=== PATIENT | male | born 1955 | race Caucasian/White ===

== ENCOUNTER → 2019-02-06 | Outpatient (CLI) | payer OTHER ==
--- NOTE | 2019-02-06 11:48 | EXE ---
[facility] [place] [address] STRESS ECHOCARDIOGRAM Name: SARA MONTOYA Room #: REG CL [facility]#: [id number] Admission: 02/06/19 Attend Phys: Renaldo Brennan MD Discharge: Date of : 55 Report #: [id number] THIS REPORT FOR: //name// APPROVED REPORT Study performed: 02/06/2019 10:51:43 Exam: Stress Echocardiogram Indication: Bradycardia Patient Location: Out-Patient Stress Nurse: Livier TALLEY Room #: Echo lab 2 Status: routine Ht: 5 ft 5 in HR: 46 bpm BP: 150/82 mmHg Rhythm: Bradycardia Medical History Allergies: No known drug allergies Cardiac Risk Factors: HTN, Hyperlipidemia Exercise History: Physically active Procedure The patient underwent an Exercise Stress Test using the Cosme Protocol. Blood pressure, heart rate, and EKG were monitored. An Echocardiogram was performed by control technician in four stages in quad fashion. At peak stress, four selected images were obtained and placed side by side with resting images for comparison. Stress Test Details Stress Test: Exercise stress testing was performed using a Cosme protocol. HR Resting HR: 46 bpm Max Heart Rate (APMHR): 157 bpm Max HR Achieved: 1513 bpm Target HR (85% APMHR): 133 bpm % of APMHR: 963 Recovery HR: 77 bpm BP Resting BP: 150/82 mmHg Max BP: 162/84 mmHg Recovery BP: 160/72 mmHg BP response to stress: Normal blood pressure response to stress. [facility] [address] [place] [address] STRESS ECHOCARDIOGRAM Name: SARA MONTOYA Room #: REG [facility]#: [id number] Admission: 02/06/19 Attend Phys: Renaldo Brennan MD Discharge: Date of : 55 Report #: [id number] ECG Resting ECG: Sinus Rhythm Stress ECG: Sinus Rhythm, nonspecific ST-T abnormalities ST Change: Non-ischemic Clinical Reason for Termination: Maximal effort Exercise duration: 73 min sec Highest Stage Achieved: Stage 3: 3.4 mph at 14% grade. Exercise capacity: 10.1 METs Overall Exercise Capacity for Age: Good Pre-Stress Echo The resting Echocardiogram showed normal left ventricular contractility with an estimated Ejection Fraction of about >55%. The resting echocardiogram demonstrated normal wall motion in all wall segments. Normal wall motion in all segments on baseline images. Post-Stress Echo The stress Echocardiogram showed normal left ventricular contractility with an estimated Ejection Fraction of about >70%. Compared to rest, there were no stress-induced wall motion abnormalities. Normal augmentation of wall motion in all segments on post stress images. Clinical No clinical or ECG evidence for ischemia. Conclusion Clinical Response: Non-ischemic Exercise Capacity: Average Stress ECG Response: Non-ischemic Stress Echo Images: Non-ischemic The left ventricle is normal in size and wall thickness in both the rest and stress images. No prior study available for comparison. Other Information Study Quality: Good <Conclusion> [facility] [address] [place] [address] STRESS ECHOCARDIOGRAM Name: DON MONTOYAOPOLDO Room #: REG [facility]#: [id number] Admission: 02/06/19 Attend Phys: Renaldo Brennan MD Discharge: Date of : 55 Report #: [id number] The left ventricle is normal in size and wall thickness in both the rest and stress images. <ELECTRONICALLY SIGNED> By: Renaldo Brennan MD 02/06/19 1147 1147 1147 Renaldo Brennan MD /INF
--- NOTE | 2019-02-06 11:50 | 2DMMODE ---
[facility] [place] [address] 2 D/M-MODE ECHOCARDIOGRAM Name: SARA MONTOYA Room #: REG [facility]#: [id number] Admission: 02/06/19 Attend Phys: Renaldo Brennan MD Discharge: Date of : 55 Report #: [id number] THIS REPORT FOR: //name// APPROVED REPORT Study performed: 02/06/2019 10:07:21 EXAM: Comprehensive 2D, Doppler, and color-flow Echocardiogram Patient Location: Out-Patient Status: routine BSA: 1.82 HR: 49 bpm BP: 150/82 mmHg Rhythm: Bradycardia Other Information Study Quality: Good Indications Bradycardia 2D Dimensions RVDd: 39.23 mm IVSd: 10.53 (7-11mm) LVOT Diam: 18.81 (18-24mm) LVDd: 49.27 mm PWd: 9.23 (7-11mm) Ascending Ao: 33.69 (22-36mm) LVDs: 34.62 (25-40mm) Aortic Root: 34.01 mm Volumes Left Atrial Volume (Systole) Single Plane 4CH: 63.94 mL Single Plane 2CH: 80.21 mL LA ESV Index: 42.00 mL/m2 Aortic Valve AoV Peak Carlos.: 1.64 m/s AO Peak Gr.: 10.80 mmHg LVOT Max P.74 mmHg LVOT Max V: 1.09 m/s RONDA Vmax: 1.84 cm2 Mitral Valve E/A Ratio: 1.1 MV Decel. Time: 150.84 ms MV E Max Carlos.: 1.05 m/s [facility] [address] [address] 2 D/M-MODE ECHOCARDIOGRAM Name: SARA MONTOYA Room #: REG CL [facility]#: [id number] Admission: 02/06/19 Attend Phys: Renaldo Brennan MD Discharge: Date of : 55 Report #: [id number] MV A Cralos.: 0.93 m/s MV PHT: 43.74 ms IVRT: 119.95 ms Pulmonary Valve PV Peak Carlos.: 1.07 m/s PV Peak Gr.: 4.56 mmHg Pulmonary Vein P Vein S: 0.49 m/s P Vein A: 0.31 m/s P Vein D: 0.44 m/s P Vein A Dur.: 166.1 msec P Vein S/D Ratio: 1.11 Left Ventricle The left ventricle is normal size. There is normal left ventricular wall thickness. The left ventricular systolic function is normal. The left ventricular ejection fraction is within the normal range. LVEF is 60%. Moderate diastolic dysfunction is present (pseudonormal filling). Right Ventricle The right ventricle is normal size. The right ventricular systolic function is normal. Atria Left atrium is mildly dilated. Right atrium is borderline dilated. Aortic Valve Aortic valve is thickened but has adequate excursion. Trace aortic regurgitation. There is no aortic valvular stenosis. Mitral Valve The mitral valve is normal in structure. Mild mitral regurgitation. No evidence of mitral valve stenosis. Tricuspid Valve The tricuspid valve is normal in structure. Trace tricuspid regurgitation. Pulmonic Valve The pulmonary valve is normal in structure. Trace pulmonic regurgitation. Great Vessels The aortic root is normal in size. IVC is normal in size and collapses >50% with inspiration. [facility] [address] [place] [address] 2 D/M-MODE ECHOCARDIOGRAM Name: DON MONTOYAOPOLDO Room #: REG [facility]#: [id number] Admission: 02/06/19 Attend Phys: Renaldo Brennan MD Discharge: Date of : 55 Report #: [id number] Pericardium There is no pericardial effusion. <Conclusion> The left ventricle is normal size. There is normal left ventricular wall thickness. The left ventricular systolic function is normal. Moderate diastolic dysfunction is present (pseudonormal filling). The right ventricle is normal size. Left atrium is mildly dilated. Aortic valve is thickened but has adequate excursion. Trace aortic regurgitation. Mild mitral regurgitation. Trace tricuspid regurgitation. <ELECTRONICALLY SIGNED> By: Renaldo Brennan MD 02/06/19 1150 1150 1150 Renaldo Brennan MD /JAY JAY
== END ==
LOC: CV 09:42
DX: I08.0 Rheumatic disorders of both mitral and aortic valves (principal); R00.1 Bradycardia, unspecified; R07.89 Other chest pain; I10 Essential (primary) hypertension; E78.5 Hyperlipidemia, unspecified

== ENCOUNTER → 2020-02-26 | Outpatient (CLI) | payer OTHER | LOC: CAT 09:07 | PROVIDERS: ATTEND Family Medicine | DX: S09.90XA Unspecified injury of head, initial encounter (principal); I67.82 Cerebral ischemia; R90.82 White matter disease, unspecified; X58.XXXA Exposure to other specified factors, initial encounter; Y93.89 Activity, other specified; Y92.89 Other specified places as the place of occurrence of the external cause; Y99.8 Other external cause status ==